=== PATIENT | male | born 2000 | race Caucasian/White ===

== ENCOUNTER 2022-03-31 16:15 | Outpatient (REF) | payer OTHER, SELFPAY ==
[2022-03-31 19:20] LABS: Abs Immature Grans 0.03 10^3/uL (0.0-0.06); Absolute Basophil Count 0.04 10^3/uL (0.0-0.2); Absolute Eosinophil Count 0.33 10^3/uL (0.0-0.7); Absolute Lymphocyte Count 3.02 10^3/uL (1.2-3.4); Absolute Monocyte Count 0.62 10^3/uL (0.1-0.8); Absolute Neutrophil Count 5.72 10^3/uL (1.2-6.7); Basophils % 0.4; Eosinophils % 3.4; HCT 43.4 % (40.0-50.0); HGB 14.3 g/dL (13.5-17.5); Immature Grans % 0.3; Lymphocytes % 30.9; MCH 30.6 pg (27.0-33.0); MCHC 32.9 % (32.0-36.0); MCV 93 fL (80-95); MPV 9.9 fL (8.0-11.0); Monocytes % 6.4; Neutrophils % 58.6; Platelet Count 351 10^3/uL (130-400); RBC 4.68 10^6/uL (4.36-5.78); RDW 12.5 % (11.8-14.1); RDW-SD 42.7 fL; WBC 9.76 10^3/uL (4.4-10.8)
[2022-03-31 19:38] LABS: Calculated LDL 94 mg/dL (<100); Cholesterol 159 mg/dL (<200); HDL Cholesterol 35 mg/dL (40-60); TSH (W/Ref FT4) 2.02 uIU/mL (0.36-3.74); Triglyceride 154 mg/dL (<150)
[2022-03-31 19:54] LABS: Hemoglobin A1C 5.2 % (<5.7)
== END 2022-03-31 16:16 | disposition home or self-care (01) ==
LOC: NCHCN 16:15
PROVIDERS: Visit Provider Nurse Practitioner Family
DX: R53.83 Other fatigue (principal); E66.9 Obesity, unspecified; Z00.00 Encounter for general adult medical examination without abnormal findings
CPT/HCPCS: 80061; 83036; 84443; 85025